=== PATIENT | female | born 1930 | race American Indian/Alaskan Native ===

== ENCOUNTER 2018-07-12 09:12 | Outpatient (CLI) | payer MEDICARE ==
--- NOTE | 2018-07-12 10:58 | Cat Scan Report ---
CT head without contrast: Memory loss Unenhanced axial sections demonstrates heavy calcification of the carotid arteries as well as calcification in vessels of the posterior fossa. There is diminished periventricular white matter changes especially around the frontal horns. There is a focal hypodensity in the right caudate nucleus and a large area of linear hypodensity in the left caudate nucleus. There is moderate enlargement of the left frontal horn. There is hypodensity as well as the right frontal horn on image 40 of series 1. There is generalized enlargement of the peripheral sulci. No extracerebral collections and no hemorrhage is identified. The visualized bones and paranasal sinuses appear generally unremarkable. No prior exams for comparison. Impression: 1. 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 2. Degenerative microvascular white matter change. 3. Cerebral atrophy.
--- NOTE | 2018-07-12 11:07 | XRay Report ---
PA and lateral chest: Cough. Minimal patchy changes identified at the periphery of the right lung base. There is mild blunting of the lateral left costophrenic angle as seen only in the frontal projection. The left ventricle appears slightly prominent in size. There is no vascular congestion. The bones are unremarkable. No prior exam for comparison. Impressions: 1. The patchy changes on the right could represent an infiltrate or atelectasis. 2. The left angle blunting may be a small effusion or pleural thickening.
== END 2018-07-12 09:13 | disposition home or self-care (01) ==
LOC: CT 09:12
PROVIDERS: ATTEND Internal Medicine
DX: G31.9 Degenerative disease of nervous system, unspecified (principal); R90.82 White matter disease, unspecified; I10 Essential (primary) hypertension; M19.90 Unspecified osteoarthritis, unspecified site; Z90.710 Acquired absence of both cervix and uterus
CPT/HCPCS: 70450; 71046